=== PATIENT | female | born 1945 | race Two or more races ===

== ENCOUNTER → 2017-03-20 | Outpatient (CLI) | payer MEDICARE, OTHER ==
[~2017-03-20] VITALS: Ht 157.5 cm; Wt 58.1 kg
[~2017-03-20] MED LIST: ATORVASTATIN CA40 MG ORAL; CLOPIDOGREL75 MG ORAL; DONEPEZIL HCL10 MG ORAL; HTN meds; METOPROLOL SUCC50 MG ORAL; MIRTAZAPINE7.5 MG ORAL; SYNTHROID25 MCG ORAL; [UNRECOGNIZED DRUG - OTHER]; [UNRECOGNIZED DRUG - REMARK]; cholesterol meds
[2017-03-20 14:23] VITALS: BP 121/72
--- NOTE | 2017-03-20 15:29 | GI Initial Consult Note ---
RadhaJuani Pratheroi N.PLibby 03/20/17 1529: History of Present Illness General Date patient seen: Mar 20, 2017 Time patient seen: 15:21 Referring physician: COLEEN Reason for Consultation: BLOODY STOOLS Present Illness HPI 71 year old female patient referred by Dr. Rojas for main c/o of blood in stool. In addition, the patient presents with epigastric pain, GERD with occasional burping, constipation, and abdominal bloating. The patient previously had an EGD/colonoscopy performed in 2011 with unremarkable results, see chart for full description. Home Meds Reported Medications Donepezil Hcl* (DONEPEZIL HCL*) 10 Mg Tablet, 10 MG ORAL DAILY, TAB 03/20/17 Clopidogrel* (CLOPIDOGREL*) 75 Mg Tablet, 75 MG ORAL DAILY, TAB 03/20/17 Atorvastatin Calcium* (ATORVASTATIN CALCIUM*) 40 Mg Tablet, 80 MG ORAL BEDTIME, TAB 03/20/17 Metoprolol Succinate* (METOPROLOL SUCCINATE*) 50 Mg Tab.er.24h, 50 MG ORAL DAILY , TAB 03/20/17 Mirtazapine* (MIRTAZAPINE*) 7.5 Mg Tablet, 7.5 MG ORAL BEDTIME, TAB 03/20/17 Med list reviewed/reconciled: Yes Allergies: Coded Allergies: PENICILLINS (Verified Allergy, Unknown, 03/20/17) Patient History History Provided By: Patient, Medical Record PMH Narrative AL < 1 year ago HTN Cholesterol Diverticulosis PSHx head thyroid cardiac stent nose Family History Narrative Mother - Colon CA Social History: Denies: alcohol use, drug use, other, smoking Review of Systems All Other Systems: negative except mentioned in HPI Physical Exam Vital Signs Date Time Temp Pulse Resp B/P Pulse Ox O2 Delivery O2 Flow Rate FiO2 03/20/17 14:23 97.6 62 16 121/72 98 Sp02 EP Interpretation: reviewed General Appearance: well appearing, no apparent distress, alert Head: normocephalic EENT: normal ENT inspection Neck: full range of motion, supple Respiratory: normal breath sounds, no respiratory distress, no retraction Cardiovascular: normal rate Gastrointestinal: normal inspection, non tender, soft, normal bowel sounds Rectal: deferred Genitourinary: normal inspection, no CVA tenderness Musculoskeletal: normal inspection, back normal Neurologic: normal inspection, alert, oriented x3, responsive Psychiatric: normal inspection, judgement/insight normal, memory normal Skin: normal inspection, normal color, no rash Lymphatic: normal inspection, no adenopathy GI: Plan Problems: (1) Diverticulosis (2) Bloody stools (3) GERD (gastroesophageal reflux disease) (4) Constipated (5) Abdominal bloating Plan recommend EGD/colonoscopy to evaluate bloody stools >> refused at this time by the patient, states she will contact the clinic after decision miralax samples given RTC x 1 month/prn Seen with Dr. Florentino. Thank you for referring this patient. KENNEY FLORENTINO 03/21/17 0739: History of Present Illness Present Illness Home Meds Reported Medications Donepezil Hcl* (DONEPEZIL HCL*) 10 Mg Tablet, 10 MG ORAL DAILY, TAB 03/20/17 Clopidogrel* (CLOPIDOGREL*) 75 Mg Tablet, 75 MG ORAL DAILY, TAB 03/20/17 Atorvastatin Calcium* (ATORVASTATIN CALCIUM*) 40 Mg Tablet, 80 MG ORAL BEDTIME, TAB 03/20/17 Metoprolol Succinate* (METOPROLOL SUCCINATE*) 50 Mg Tab.er.24h, 50 MG ORAL DAILY , TAB 03/20/17 Mirtazapine* (MIRTAZAPINE*) 7.5 Mg Tablet, 7.5 MG ORAL BEDTIME, TAB 03/20/17 Allergies: Coded Allergies: PENICILLINS (Verified Allergy, Unknown, 03/20/17) GI: Plan Plan The patient was seen and examined at bedside and all new and available data was reviewed in the patients chart. I agree with the above findings, impression and plan. (Patient seen earlier today. Signature stamp does not reflect patient encounter time.). -Kenney Garcia,[facility] David N.PLibby Mar 20, 2017 15:29 KENNEY FLORENTINO Mar 21, 2017 07:39
== END | disposition home or self-care (01) ==
LOC: PAN 13:59
DX: K57.90 Diverticulosis of intestine, part unspecified, without perforation or abscess without bleeding (principal); K21.9 Gastro-esophageal reflux disease without esophagitis; K59.00 Constipation, unspecified; R14.0 Abdominal distension (gaseous); K92.1 Melena; Z88.0 Allergy status to penicillin; Z80.0 Family history of malignant neoplasm of digestive organs; I10 Essential (primary) hypertension
CPT/HCPCS: 99201